=== PATIENT | female | born 1995 | race Caucasian/White ===

== ENCOUNTER 2021-10-11 09:06 | Observation (INO) | payer MEDICAID, OTHER ==
[~2021-10-11] VITALS: Ht 152.4 cm; Wt 68.0 kg
[2021-10-11] MEDS ORDERED: PNV1TABL50 MT (11:23)
== END 2021-10-11 11:30 | disposition home or self-care (01) ==
LOC: 8 EST LDRP 09:06
PROVIDERS: ADMIT Specialist; ATTEND Specialist
DX: O62.9 Abnormality of forces of labor, unspecified (principal); Z3A.40 40 weeks gestation of pregnancy
CPT/HCPCS: 59025; 76805; 76818; G0378; 99281